=== PATIENT | female | born 1935 | race Caucasian/White ===

== ENCOUNTER → 2016-10-31 | Outpatient (CLI) | payer MEDICARE, BC ==
[~2016-10-31] MED LIST: ACETAMINOPHEN PO; ACTOS PO; ACTOS30 MG PO; ADVIL200 M2 PO; ALPRAZOLAM PO; ALPRAZOLAM0.25 MG; ASPIRIN PO; ASPIRIN81 M1 PO; ASTELIN137 MCG INH; AVELOX400 MG PO; CALCITRIOL; CALCIUM LACTATE; CLARITIN10 MG PO; GLUCOSAMINE; GLUCOSAMINE-CH1 EAC3; GLYNASE PO; HYDROCODON-ACE1 EAC4 PO; IBUPROFEN PO; LOCOID 0.1% LIP45 GM TOP; LORTAB 10/500 T1 TAB PO; OMEGA-3100 MG PO; OPCON-A EYE DRO15 M1 OP; PREVACID PO; ROCALTROL0.5 MCG PO; ROXANOL20 MG/ML PO; STOOL SOFTENER240 MG PO; STOOL SOFTNER; SYNTHROID PO; SYNTHROID0.15 MG PO; ZETIA PO; [UNRECOGNIZED DRUG - OTHER] PO
[2016-10-31 16:08] LABS: ALBUMIN SERUM 4.2 g/dL (3.5-5.0); BILIRUBIN,TOTAL 0.4 mg/dL (0.2-2.0); BUN/CREATININE RATIO 19.44; CALCIUM SERUM 9.8 mg/dL (8.4-10.2); CREATININE SERUM 1.8 mg/dL (0.6-1.4); GLOM FILT RATE Estimated 28.7 mL/min (>60); PHOSPHOROUS 3.4 mg/dL (2.5-4.6); POTASSIUM 4.5 mmol/L (3.5-5.1); PROTEIN TOTAL SERUM 7.7 g/dL (6.0-8.3)
[2016-11-06 09:41] LABS: CALCIUM (PTHINTACT) 10.2 mg/dL (8.6-10.4)
== END | disposition home or self-care (01) ==
LOC: SLAB 13:57
PROVIDERS: Internal Medicine Nephrology
DX: N18.3 Chronic kidney disease, stage 3 (moderate) (principal)
CPT/HCPCS: 36415; 80053; 82310; 83970; 84100

== ENCOUNTER → 2016-11-20 | Outpatient (CLI) | payer MEDICARE, BC | END | disposition home or self-care (01) | LOC: SLAB 13:20 | DX: E83.52 Hypercalcemia (principal) | CPT/HCPCS: 36415; 82310 ==

== ENCOUNTER → 2017-01-30 | Outpatient (CLI) | payer MEDICARE, BC ==
[2017-01-30 14:49] LABS: HEMATOCRIT 35.4 % (35.0-45.0); MEAN CELL VOLUME 102.9 FL (83-96); MEAN CORPUSCULAR HEMOGLOBIN 34.9 PG (28-34); MEAN CORPUSCULAR HGB CONC 33.9 g/dL (30-36); MEAN PLATELET VOLUME 7.9 FL (6.5-11.5); RED BLOOD COUNT 3.44 X10e (3.90-5.30); RED CELL DISTRIBUTION WIDTH 17.3 % (11.0-15.5); WHITE BLOOD COUNT 7.1 X10e3 (4.0-10.5)
[2017-01-30 15:17] LABS: ALBUMIN SERUM 4.4 g/dL (3.5-5.0); BILIRUBIN,TOTAL 0.5 mg/dL (0.2-2.0); CREATININE SERUM 1.5 mg/dL (0.6-1.4); GLOM FILT RATE Estimated 32.1 mL/min (>60); PHOSPHOROUS 4.4 mg/dL (2.5-4.6); POTASSIUM 4.5 mmol/L (3.5-5.1); PROTEIN TOTAL SERUM 8.5 g/dL (6.0-8.3)
[2017-02-03 07:43] LABS: CALCIUM (PTHINTACT) 7.3 mg/dL (8.6-10.4)
== END | disposition home or self-care (01) ==
LOC: SLAB 14:30
PROVIDERS: Internal Medicine Nephrology
DX: N18.3 Chronic kidney disease, stage 3 (moderate) (principal); E83.52 Hypercalcemia
CPT/HCPCS: 36415; 80053; 82310; 83970; 84100; 85027